=== PATIENT | female | born 1960 | race Caucasian/White ===

== ENCOUNTER 2023-03-12 20:45 | Emergency (ER) | payer BC, OTHER ==
[~2023-03-12] VITALS: Ht 165.1 cm; Wt 77.1 kg
[2023-03-12 21:23] VITALS: BP_SYST 151
--- NOTE | 2023-03-12 21:26 | NUR ---
Triaged and placed patient back to the waiting room. No acute respiratory distress at this time. VSS. Informed patient to notify ED staff for any changes in condition or worsening of symptoms while waiting to be seen by a provider. Patient verbalized understanding.
--- NOTE | 2023-03-12 22:07 | NUR ---
Note cecelia in ED - 03/12/23 at 2208 by [email or web address] Patient to ER CHAIR for evaluation. Report given to SUAD CHRISTIANSON
--- NOTE | 2023-03-12 22:09 | NUR ---
Placed in room 07. Placed on immigration judge, blood pressure machine and pulse oximeter. To gown for exam. Side rails up. Report given to SUAD CHRISTIANSON
--- NOTE | 2023-03-12 22:15 | NUR ---
PT WAS BIB SPOUSE C/O MECHANICAL FALL, PER PT STATES HIT BEACK OF HEAD WITHOUT K.O, PT STATES WHEN LANDING SCRAPED HER LEFT HAND IN UNKNOW SHARP OBJECT CAUSING LACERATION TO LEFT MIDDLE FINGER. CMS INTACT, PT UNABLE TO PUT LEFT RING FINGER STRAIGHT. SENSATION FELT ON ALL FINGERS EQUALLY.
[2023-03-12 22:25] VITALS: BP_SYST 157
[2023-03-12] MEDS ORDERED: LIDOCAINE 1% 10 MG/ML, 20 ML MDV INJ ONE (23:00)
[2023-03-12] MEDS ORDERED: KETOROLAC TROMETHAMINE 30 MG VIAL IM ONE (23:30)
[2023-03-13] MEDS ORDERED: KETOROLAC TROMETHAMINE 30 MG VIAL ONE (00:08)
[2023-03-13] MEDS ORDERED: TRAM50TA2 PO ×2 (00:22→00:44)
--- NOTE | 2023-03-13 00:37 | NUR ---
Patient given written and verbal discharge instructions and verbalizes understanding. ER MD discussed with patient the results and treatment provided. Patient in stable condition. ID arm band removed. IV catheter removed intact and dressing applied, no active bleeding. Rx of TRAMADOL 50 MG given. Patient educated on pain management and to follow up with PMD. Pain Scale . Opportunity for questions provided and answered. Medication side effect fact sheet provided.
== END 2023-03-13 00:36 | disposition home or self-care (01) ==
LOC: SED 20:45
DX: S63.281A Dislocation of proximal interphalangeal joint of left index finger, initial encounter (principal); S61.211A Laceration without foreign body of left index finger without damage to nail, initial encounter; M20.012 Mallet finger of left finger(s); Z88.8 Allergy status to other drugs, medicaments and biological substances; Z79.899 Other long term (current) drug therapy; W18.40XA Slipping, tripping and stumbling without falling, unspecified, initial encounter; Y93.89 Activity, other specified; Y92.89 Other specified places as the place of occurrence of the external cause; Y99.8 Other external cause status
CPT/HCPCS: 99284; 26770; 72220; 73130; 96372; 12001; 73140; J1885 ×2; J2001